=== PATIENT | male | born 1945 | race Caucasian/White ===

== ENCOUNTER 2021-03-29 11:44 | Emergency (ER) | payer OTHER ==
[~2021-03-29] VITALS: Ht 177.8 cm; Wt 82.6 kg
[2021-03-29 11:50] VITALS: BP_SYST 103
[2021-03-29] MEDS ORDERED: AMOX-423 PO (12:05)
[2021-03-29] MEDS ORDERED: IBUP-1969 PO (12:05)
--- NOTE | 2021-03-29 12:05 | NUR ---
ER at bedside examining patient.
--- NOTE | 2021-03-29 12:05 | NUR ---
Pt. placed IN ROOM 4 by paul [facility]
[2021-03-29] MEDS ORDERED: BACITRACIN 1 GM OINT TP ONE ×2 (12:09→12:15)
--- NOTE | 2021-03-29 12:10 | NUR ---
Pt. brought self in post a cat bite to right hand skin is open approximately 1 x 1 inch, wound irrigated, cleaned, bacitricin applied and covered with non adherant dressing, pt. denies need for pain med.
[2021-03-29] MEDS ORDERED: DIPH-TET-PERTUS Vaccine 0.5 ML VIAL (ADACEL) I.M. ONE (12:15)
--- NOTE | 2021-03-29 12:30 | NUR ---
Patient given written and verbal discharge instructions and verbalizes understanding. ER discussed with patient the results and treatment provided. Patient in stable condition. ID arm band removed. Rx of Augmentin and Motrin given. Patient educated on pain management and to follow up with PMD. Pain Scale 0. Opportunity for questions provided and answered. Medication side effect fact sheet provided.
[2021-03-29 12:37] VITALS: BP_SYST 108
== END 2021-03-29 12:30 | disposition home or self-care (01) ==
LOC: SED 11:44
DX: S61.451A Open bite of right hand, initial encounter (principal); W55.01XA Bitten by cat, initial encounter; Y93.89 Activity, other specified; Y92.89 Other specified places as the place of occurrence of the external cause; Y99.8 Other external cause status
CPT/HCPCS: 90715; 99283

== ENCOUNTER 2021-04-01 07:52 | Emergency (ER) | payer OTHER ==
[~2021-04-01] VITALS: Ht 167.6 cm; Wt 79.4 kg
[~2021-04-01 07:52] MED LIST: AMOX-423 PO; IBUP-1969 PO
[2021-04-01 07:59] VITALS: BP_SYST 116
[2021-04-01 08:15] LABS: BASOPHILS % (AUTO) 0.7 % (0.0-2.0); EOSINOPHILS # (AUTO) 0.4 K/uL (0.0-0.4); EOSINOPHILS % (AUTO) 4.9 % (0.0-4.0); HEMATOCRIT 32.9 % (36-54); HEMOGLOBIN 11.4 g/dL (14.0-18.0); LYMPHOCYTES # (AUTO) 1.6 K/uL (1.0-5.5); LYMPHOCYTES % (AUTO) 21.7 % (20.5-51.5); MEAN CORPUSCULAR HEMOGLOBIN 33 pg (27-31); MEAN CORPUSCULAR HGB CONC 35 % (32-36); MEAN CORPUSCULAR VOLUME 97 fL (79.0-98.0); MONOCYTES # (AUTO) 0.7 K/uL (0.0-1.0); NEUTROPHILS # (AUTO) 4.7 K/uL (1.8-7.7); NEUTROPHILS % (AUTO) 63.7 % (40.0-70.0); PLATELET COUNT (AUTO) 253 K/uL (130-430); RED CELL DISTRIBUTION WIDTH 14.3 % (9.0-15.0); WHITE BLOOD COUNT (AUTO) 7.4 K/uL (4.8-10.8)
[2021-04-01 08:45] LABS: ANION GAP 9 (5-15); CALCIUM 8.8 mg/dL (8.4-11.0); CHLORIDE 107 mmol/L (98-107); CREATININE 1.46 mg/dL (0.55-1.30); GLUCOSE 108 mg/dL (70-99); POTASSIUM 4.7 mmol/L (3.5-5.1); SODIUM SERUM 141 mmol/L (136-145); UREA NITROGEN, BLOOD 26 mg/dL (8-21)
[2021-04-01 08:49] LABS: ALANINE AMINOTRANSFERASE 22 U/L (12-78); ASPARTATE AMINOTRANSFERASE 22 U/L (10-37); C-REACTIVE PROTEIN QUANT 5.9 mg/dL (0-0.5); TOTAL BILIRUBIN 0.3 mg/dL (0.0-1.0)
[2021-04-01 08:52] LABS: INR 0.9 (0.80-1.20); PROTHROMBIN TIME 9.4 SECS (9.5-12.5)
[2021-04-01] MEDS ORDERED: BACITRACIN 1 GM OINT TP ONE (09:30)
[2021-04-01 09:41] VITALS: BP_SYST 116
== END 2021-04-01 09:54 | disposition home or self-care (01) ==
LOC: SED 07:52
DX: S61.451A Open bite of right hand, initial encounter (principal); Z79.899 Other long term (current) drug therapy; L08.9 Local infection of the skin and subcutaneous tissue, unspecified; W55.01XA Bitten by cat, initial encounter; Y93.89 Activity, other specified; Y92.89 Other specified places as the place of occurrence of the external cause; Y99.8 Other external cause status
CPT/HCPCS: 36415; 80053; 83605; 85025; 85610-TC; 85730-TC; 86140; 99283

== ENCOUNTER 2021-09-05 10:48 | Emergency (ER) | payer OTHER, SELFPAY ==
[~2021-09-05] VITALS: Ht 177.8 cm; Wt 82.6 kg
--- NOTE | 2021-09-05 11:10 | NUR ---
Pt brought by self, A&Ox4, pt presents to ER with episodes of dizziness,fatigue x 2 weeks, pt states occurs when moving his head, patiend denies pain or other symptoms , skin pink and warm, cap refill <3, VSS, respirations even and unlabored.
[2021-09-05 11:20] VITALS: BP_SYST 158
--- NOTE | 2021-09-05 11:55 | NUR ---
Dr Wang evaluating patient in the triage room
[2021-09-05 12:14] LABS: BASOPHILS % (AUTO) 0.7 % (0.0-2.0); EOSINOPHILS # (AUTO) 0.3 K/uL (0.0-0.4); EOSINOPHILS % (AUTO) 5.3 % (0.0-4.0); HEMATOCRIT 40.6 % (36-54); HEMOGLOBIN 13.6 g/dL (14.0-18.0); LYMPHOCYTES # (AUTO) 1.4 K/uL (1.0-5.5); LYMPHOCYTES % (AUTO) 24.2 % (20.5-51.5); MEAN CORPUSCULAR HEMOGLOBIN 32 pg (27-31); MEAN CORPUSCULAR HGB CONC 33 % (32-36); MEAN CORPUSCULAR VOLUME 95 fL (79.0-98.0); MONOCYTES # (AUTO) 0.5 K/uL (0.0-1.0); MONOCYTES % (AUTO) 8.6 % (1.7-9.3); NEUTROPHILS # (AUTO) 3.7 K/uL (1.8-7.7); NEUTROPHILS % (AUTO) 61.2 % (40.0-70.0); PLATELET COUNT (AUTO) 276 K/uL (130-430); RED BLOOD CELL COUNT(AUTO) 4.28 MIL/uL (4.2-6.2); RED CELL DISTRIBUTION WIDTH 14.6 % (9.0-15.0)
[2021-09-05 12:23] LABS: ANION GAP 7 (5-15); CALCIUM 9.4 mg/dL (8.4-11.0); CHLORIDE 103 mmol/L (98-107); GLUCOSE 106 mg/dL (70-99); POTASSIUM 4.5 mmol/L (3.5-5.1); SODIUM SERUM 139 mmol/L (136-145); UREA NITROGEN, BLOOD 32 mg/dL (8-21)
[2021-09-05 12:32] LABS: ALANINE AMINOTRANSFERASE 24 U/L (12-78); ALBUMIN 3.5 g/dL (3.4-4.8); ASPARTATE AMINOTRANSFERASE 12 U/L (10-37); TOTAL BILIRUBIN 0.3 mg/dL (0.0-1.0)
[2021-09-05] MEDS ORDERED: IOHEXOL 350 mgI/mL, 150 ML INFUS..BTL IV ONE (13:20)
--- NOTE | 2021-09-05 14:34 | NUR ---
Pt A&Ox4, VSS, respirations even and unlabored, cap refill <3.
[2021-09-05] MEDS ORDERED: ASPIRIN 325 MG TABLET (ECOTRIN) PO ONE (16:45)
[2021-09-05] MEDS ORDERED: ASPI-858 PO (17:30)
[2021-09-05 18:40] VITALS: BP_SYST 130
--- NOTE | 2021-09-05 18:40 | NUR ---
Patient given written and verbal discharge instructions and verbalizes understanding. ER MD discussed with patient the results and treatment provided. Patient in stable condition. ID arm band removed. Rx of ASPIRIN given. Patient educated on pain management and to follow up with PMD. Pain Scale 0. Opportunity for questions provided and answered. Medication side effect fact sheet provided.
[2021-09-06] MEDS ORDERED: MECL-225 PO (15:26)
== END 2021-09-05 18:40 | disposition home or self-care (01) ==
LOC: SED 10:48
DX: R42 Dizziness and giddiness (principal)
CPT/HCPCS: 36415; 70450; 70496; 70498; 71045; 76376; 80053; 82550; 84484; 85025; 99285; Q9967

== ENCOUNTER → 2021-09-06 | Emergency (ER) | payer OTHER, MEDICAID, SELFPAY ==
[~2021-09-06] MED LIST changes: +ASPI-858 PO; +MECL-225 PO
== END | disposition home or self-care (01) ==
LOC: SED 14:04
DX: R42 Dizziness and giddiness (principal); Z79.82 Long term (current) use of aspirin; Z79.899 Other long term (current) drug therapy
CPT/HCPCS: 99282